=== PATIENT | female | born 1965 | race Caucasian/White ===

== ENCOUNTER 2017-06-15 06:08 | Day surgery (SDC) | payer OTHER ==
[2017-06-12 09:59] VITALS: Ht 160 cm; Wt 91.8 kg
[~2017-06-15] VITALS: Ht 160 cm; Wt 91.8 kg
[2017-06-15] VITALS (12 sets, daily range): BP systolic 94–136; BP diastolic 43–70; PULSE 66–82; RESP 13–23
[~2017-06-15 06:08] MED LIST: CLINDAMYCIN 600 MG/D5W (PMX) 50 ML IVPB SCH; SOD CHLORIDE 0.9% 1,000 ML IV SCH
[2017-06-15] MEDS ORDERED: BUPIVACAINE 0.25% (MPF) 30 ML INJ ONE (06:48)
[2017-06-15] MEDS ORDERED: POLYMYXIN/BACITRACIN 1L IRRIG ONE (06:48)
[2017-06-15] MEDS ORDERED: ASPI-664 PO (06:59)
[2017-06-15] MEDS ORDERED: CLIN-73 PO (06:59)
[2017-06-15] MEDS ORDERED: SUCCINYLCHOLINE CHLORIDE 100 MG/5 ML SYG IV ONE (07:00)
[2017-06-15] MEDS ORDERED: BUPIVACAINE 0.25% (MPF) 30 ML INJ INJ ONE (07:20)
[2017-06-15] MEDS ORDERED: PROPOFOL 20 ML ONE (07:22)
[2017-06-15] MEDS ORDERED: FENTAnyl 50 MCG/ML VIAL ONE (07:22)
[2017-06-15] MEDS ORDERED: ROCURONIUM 50 MG INJ ONE ×2 (07:22→08:14)
[2017-06-15] MEDS ORDERED: MIDAZOLAM 1 MG/ML 2 ML INJ ONE ×3 (07:22→07:51)
[2017-06-15] MEDS ORDERED: ROPIVACAINE 0.2% 20 ML VIAL ONE (07:23)
[2017-06-15] MEDS ORDERED: CLINDAMYCIN 600 MG/D5W (PMX) 50 ML IVPB ONE (08:28)
[2017-06-15] MEDS ORDERED: SUGAMMADEX SODIUM 200 MG/2 ML VIAL IV ONE (08:28)
[2017-06-15] MEDS ORDERED: DEXAMETHASONE 4 MG/ML 1 ML INJ ONE (08:29)
[2017-06-15] MEDS ORDERED: KETOROLAC 30 MG INJ ONE (08:29)
[2017-06-15] MEDS ORDERED: METOCLOPRAMIDE 10 MG INJ ONE (08:29)
[2017-06-15] MEDS ORDERED: ONDANSETRON 4 MG INJ ONE ×2 (08:29→08:51)
--- NOTE | 2017-06-15 08:42 | OPR ---
Date/Time of Note Date/Time of Note DATE: 06/15/17 TIME: 08:35 Operative Report Procedure Date: Jun 15, 2017 Preoperative Diagnosis incarcerated ventral hernia Postoperative Diagnosis incarcerated ventral hernia Operation Performed 1. laparoscopic incarcerated ventral hernia repair cpt code 01930 2. implantation of mesh cpt code 96059 3. therapeutic injection of subcutaneous marcaine cpt code 22895 Surgeon: Yasmani VASQUEZ Anesthesia Type: general Estimated Blood Loss: minimal Specimen: none Grafts/Implants ventral light st 10 x 15 cm mesh Complications: no Indications This is a 52-year-old female with an incarcerated ventral hernia. She required surgical repair. Risks alternatives benefits and percent were discussed the patient. Patient expresses understanding and consents to the operation. Procedure Description Patient taken to the OR and prepped and draped in usual sterile fashion. Surgical timeout was performed. IV antibiotics are given. Left upper quadrant 5 mm incision is made transversely with a 15 blade. Using a 5 mm optical trocar optical entry is performed. Pneumoperitoneum is established. Left flank 12 mm optical trocar and left lower quadrant 5 mm optical trochars were placed under direct visualization. Upon initial inspection there is incarcerated contents into the ventral hernia. This is reduced laparoscopically using laparoscopic techniques and harmonic cecil. The defect is then identified. This is closed with multiple interrupted #1 Prolenes using Endo Close and laparoscopic techniques. Underlay mesh with approximate 4-5 cm of coverage in all directions is secured in place with ventral light ST 10 x 15 cm mesh. This mesh is secured in place with secure strap. There is good hemostasis. Ports removed under direct visualization. Skin is closed using skin phyllis. Therapeutic subcutaneous Marcaine is injected throughout all port sites. Dry dressings were applied. Yasmani VASQUEZ Jun 15, 2017 08:42
[2017-06-15] MEDS ORDERED: HYDROmorphONE (0.2 MG/ML) 10ML SYG IV ONE (08:48)
[2017-06-15] MEDS: HYDROmorphONE (0.2 MG/ML) 10ML SYG IV PRN ×4 (08:50→09:34)
[2017-06-15] MEDS ORDERED: morphine (1 MG/ML) 10ML SYRINGE IV PRN ×3 (09:00)
[2017-06-15] MEDS ORDERED: EPHEDrine SULFATE 50 MG/5 ML SYG IV PRN (09:00)
[2017-06-15] MEDS ORDERED: HYDROmorphONE (0.2 MG/ML) 10ML SYG IV PRN ×2 (09:00)
[2017-06-15] MEDS ORDERED: LORAZEPAM 2 MG INJ IV PRN (09:00)
[2017-06-15] MEDS ORDERED: HYDROCODONE/APAP (5/325) TAB PO ONE (09:00)
[2017-06-15] MEDS ORDERED: DIPHENHYDRAMINE 50 MG INJ IV PRN (09:00)
[2017-06-15] MEDS ORDERED: OXYCODONE/ACETAMINOPHEN (5/325) TAB PO PRN ×2 (09:00)
[2017-06-15] MEDS ORDERED: hydrALAzine 20 MG INJ IV PRN (09:00)
[2017-06-15] MEDS ORDERED: FENTAnyl 50 MCG/ML VIAL IV PRN ×3 (09:00)
[2017-06-15] MEDS ORDERED: LABETALOL HCL 20MG INJ IV PRN (09:00)
[2017-06-15] MEDS ORDERED: ONDANSETRON 4 MG INJ IV PRN (09:00)
[2017-06-15] MEDS ORDERED: MEPERIDINE 25 MG INJ IV PRN (09:00)
== END 2017-06-15 11:09 | disposition home or self-care (01) ==
LOC: SDS 06:08
PROVIDERS: ATTEND Surgery
DX: K43.6 Other and unspecified ventral hernia with obstruction, without gangrene (principal); E11.9 Type 2 diabetes mellitus without complications; E66.9 Obesity, unspecified; Z68.35 Body mass index [BMI] 35.0-35.9, adult
CPT/HCPCS: 49653; 82962; 84703; C1781; J1100; J1170; J1885; J2250; J2405; J2765; J2795; J3010; Z7512; Z7610; J7999

== ENCOUNTER 2017-06-23 01:03 | Emergency (ER) | payer OTHER ==
[~2017-06-23] VITALS: Ht 162.6 cm; Wt 91.5 kg
[~2017-06-23 01:03] MED LIST changes: +ASPI-664 PO; +CLIN-73 PO; -CLINDAMYCIN 600 MG/D5W (PMX) 50 ML IVPB SCH; -SOD CHLORIDE 0.9% 1,000 ML IV SCH
[2017-06-23 01:09] VITALS: Ht 162.6 cm; Wt 91.5 kg
[2017-06-23] MEDS ORDERED: SOD CHLORIDE 0.9% 500 ML IV STA (03:32)
[2017-06-23] MEDS ORDERED: LORAZEPAM 2 MG INJ IV ONE (04:00)
--- NOTE | 2017-06-23 04:37 | RADRPT ---
PROCEDURE: XR Chest. CLINICAL INDICATION: Chest pain TECHNIQUE: AP Portable chest. COMPARISON: No pertinent prior examinations were submitted for comparison. FINDINGS: The cardiomediastinal silhouette is normal. The lungs are clear. The osseous structures are unrema rkable. IMPRESSION: No acute findings. RPTAT: HIKT .Neymar Shafer MD, MD Date Time Electronically viewed and signed by .Neymar Shafer MD, on 06/23/2017 04:36 .T/
[2017-06-23 04:46] LABS: BASOPHILS % 0.1 % (0.0-2.0); EOSINOPHILS # 0.2 10^3/ul (0.0-0.5); EOSINOPHILS % 1.7 % (0.0-7.0); HEMOGLOBIN 13.4 g/dl (12.0-16.0); LYMPHOCYTES % 23.1 % (15.0-51.0); MEAN CORPUSCULAR HEMOGLOBIN 27.7 pg (29.0-33.0); MEAN CORPUSCULAR HGB CONC 33.5 g/dl (32.0-37.0); MEAN CORPUSCULAR VOLUME 82.8 fl (82.0-101.0); MEAN PLATELET VOLUME 9.9 fl (7.4-10.4); MONOCYTE # 0.6 10^3/ul (0.3-0.9); MONOCYTES % 6.4 % (0.0-11.0); NEUTROPHILS % 68.4 % (39.0-77.0); PLATELET COUNT 312 10^3/UL (140-415); RED BLOOD COUNT 4.83 10^6/ul (4.20-5.40); RED CELL DISTRIBUTION WIDTH 12.4 % (11.5-14.5); WHITE BLOOD COUNT 8.6 10^3/ul (4.8-10.8)
[2017-06-23 05:05] LABS: ALANINE AMINOTRANSFERASE 32 IU/L (13-69); ALBUMIN 3.9 g/dl (3.3-4.9); ALBUMIN/GLOBULIN RATIO 1.34; ALKALINE PHOSPHATASE 106 IU/L (42-121); ANION GAP 14 (8-16); ASPARTATE AMINO TRANSFERASE 27 IU/L (15-46); BILIRUBIN,INDIRECT 0.3 mg/dl (0-1.1); BILIRUBIN,TOTAL 0.3 mg/dl (0.2-1.3); BLOOD UREA NITROGEN 19 mg/dl (7-20); CALCIUM 9.8 mg/dl (8.4-10.2); CARBON DIOXIDE 26 mmol/L (21-31); CHLORIDE 102 mmol/L (97-110); CREATININE 0.81 mg/dl (0.44-1.00); GLUCOSE 135 mg/dl (70-220); POTASSIUM 4.1 mmol/L (3.5-5.1); SODIUM 138 mmol/L (135-144); TOTAL PROTEIN 6.8 g/dl (6.1-8.1)
[2017-06-23 05:14] LABS: B-TYPE NATRIURETIC PEPTIDE 75 PG/ML (0-125)
[2017-06-23 05:15] LABS: TROPONIN-I < 0.012 ng/ml (0.00-0.12)
[2017-06-23] MEDS ORDERED: HYDR-906 PO (06:03)
[2017-06-23] MEDS ORDERED: MV-M1CAP17 PO (06:03)
--- NOTE | 2017-06-23 06:03 | ERD ---
ER Documentation Chief Complaint Date/Time DATE: 06/23/17 TIME: 06:02 Chief Complaint dizziness, lighthheadedness, body rashes, chest wall pain, back pain HPI 52-year-old female with complaint of rashes and dizziness lightheadedness. At this point feels better denies any nausea vomiting fevers chills. Denies any chest pain. Denies any other current complaints. ROS All systems reviewed and are negative except as per history of present illness. Medications Home Meds Reported Medications Aspirin* (Aspirin* EC) 81 Mg Tablet.dr, 81 MG PO DAILY, TAB 06/15/17 Clindamycin Hcl* (Clindamycin Hcl*) 300 Mg Capsule, 300 MG PO Q6, CAP 06/15/17 Allergies Allergies: Coded Allergies: lidocaine (Unverified Allergy, Severe, sob, tachycardia, 06/23/17) procaine (Unverified Allergy, Severe, sob,tachycardia, 06/23/17) Penicillins (Unverified Allergy, Unknown, 06/23/17) Sulfa (Sulfonamide Antibiotics) (Unverified Allergy, Unknown, 06/23/17) PMhx/Soc History of Surgery: Yes (GAB BREAST IMPLANT, umbilical hernia repair) Anesthesia Reaction: Yes (SOB,TACHYCARDIA) Hx Neurological Disorder: No (anxiety, panic attack) Hx Respiratory Disorders: Yes (ALLERGIC RHINITIS,PNA) Hx Cardiac Disorders: Yes (HLD) Hx Psychiatric Problems: No Hx Miscellaneous Medical Probl: No Hx Alcohol Use: No Hx Substance Use: Yes (meth) Hx Tobacco Use: No Smoking Status: Never smoker Physical Exam Vitals Vital Signs Date Time Temp Pulse Resp B/P Pulse Ox O2 Delivery O2 Flow Rate FiO2 06/23/17 05:30 80 16 116/60 98 Room Air 06/23/17 03:35 96 15 141/78 98 Room Air 06/23/17 01:09 98.2 111 20 145/90 98 Physical Exam Const: [] Head: Atraumatic Eyes: Normal Conjunctiva ENT: Normal External Ears, Nose and Mouth. Neck: Full range of motion..~ No meningismus. Resp: Clear to auscultation bilaterally Cardio: Regular rate and rhythm, no murmurs Abd: Soft, non tender, non distended. Normal bowel sounds Skin: No petechiae or rashes Back: No midline or flank tenderness Ext: No cyanosis, or edema Neur: Awake and alert Psych: Normal Mood and Affect Result Diagram: 06/23/17 0344 06/23/17 0344 Results 24 hrs Laboratory Tests Test 06/23/17 03:44 White Blood Count 8.610^3/ul Red Blood Count 4.8310^6/ul Hemoglobin 13.4g/dl Hematocrit 40.0% Mean Corpuscular Volume 82.8fl Mean Corpuscular Hemoglobin 27.7pg Mean Corpuscular Hemoglobin Concent 33.5g/dl Red Cell Distribution Width 12.4% Platelet Count 69026^3/UL Mean Platelet Volume 9.9fl Neutrophils % 68.4% Lymphocytes % 23.1% Monocytes % 6.4% Eosinophils % 1.7% Basophils % 0.1% Nucleated Red Blood Cells % 0.0/100WBC Neutrophils # (Manual) 5.910^3/ul Lymphocytes # 2.010^3/ul Monocytes # 0.610^3/ul Eosinophils # 0.210^3/ul Basophils # 0.010^3/ul Nucleated Red Blood Cells # 0.010^3/ul Sodium Level 138mmol/L Potassium Level 4.1mmol/L Chloride Level 102mmol/L Carbon Dioxide Level 26mmol/L Anion Gap 14 Blood Urea Nitrogen 19mg/dl Creatinine 0.81mg/dl Glucose Level 135mg/dl Calcium Level 9.8mg/dl Total Bilirubin 0.3mg/dl Direct Bilirubin 0.00mg/dl Indirect Bilirubin 0.3mg/dl Aspartate Amino Transf (AST/SGOT) 27IU/L Alanine Aminotransferase (ALT/SGPT) 32IU/L Alkaline Phosphatase 106IU/L Troponin I < 0.012ng/ml B-Type Natriuretic Peptide 75PG/ML Total Protein 6.8g/dl Albumin 3.9g/dl Globulin 2.90g/dl Albumin/Globulin Ratio 1.34 Current Medications Medications (Trade) Dose Ordered Sig/Leandro Route PRN Reason Start Time Stop Time Status Last Admin Dose Admin Sodium Chloride (NS) 500 ml @ 500 mls/hr Q1H STAT IV 06/23/17 03:32 06/23/17 04:31 DC 06/23/17 04:04 Lorazepam (Ativan) 1 mg ONCE ONCE IV 06/23/17 04:00 06/23/17 04:01 DC 06/23/17 04:03 Procedures/MDM EKG: Rate/Rhythm: [Normal Sinus Rhythm] QRS, ST, T-waves: [No changes consistent w/ acute ischemia] Impression: [No evidence of ischemia or arrhythmia] Chest X-ray 1V Interpreted by me: Soft Tissue: No acute abnormalities Bones: No acute abnormalities Mediastinum/Cardiac Silhouette/Lungs: [No acute abnormalities] Patient's thoracic symptoms have stabilized while in the department and are stable for outpatient follow up. Exam and work up not consistent w/ ischemia, arrhythmia, PE or dissection. Departure Diagnosis: Primary Impression: Multiple complaints Condition: Stable MUNDO FISCHER Jun 23, 2017 06:03
[2017-06-23] MEDS ORDERED: HC30CR25 TOP (06:05)
[2017-06-23] MEDS ORDERED: PRED20TA PO (06:05)
[2017-06-23 06:19] VITALS: BP 122/67; PULSE 72; RESP 17
== END 2017-06-23 07:45 | disposition home or self-care (01) ==
LOC: E/R 01:03
DX: R42 Dizziness and giddiness (principal); R21 Rash and other nonspecific skin eruption; R07.89 Other chest pain; M54.9 Dorsalgia, unspecified; Z79.82 Long term (current) use of aspirin
CPT/HCPCS: 36415; 71010; 80053; 83880; 84484; 85025; 93005; 96374; J2060; J7040; Z7502

== ENCOUNTER → 2018-08-23 | Outpatient (CLI) | END | disposition home or self-care (01) ==

== ENCOUNTER → 2018-08-25 | Outpatient (CLI) | END | disposition home or self-care (01) ==